=== PATIENT | male | born 1980 | race Caucasian/White ===

== ENCOUNTER → 2022-12-11 08:25 | Outpatient (CLI) | payer OTHER, SELFPAY ==
--- NOTE | ~2022-12-11 | CT_ITS ---
EXAMINATION: CT sinus wo con DATE: 12/11/2022 08:40 INDICATION: Deviated septum. Nasal obstruction. Nasal turbinate hypertrophy. TECHNIQUE: Computed tomography (CT) of the paranasal sinuses was performed without contrast. Iterativ e reconstruction technique was employed. Exam dose: 306.55 mGy-cm total exam DLP. COMPARISON: None FINDINGS: There is rightward bowing of the nasal septum. There is symmetric soft tissue prominence of the nasal turbinates. There is soft tissue thickening and partial occlusion of the right maxillary ostium and infundibulum. There is mild nonocclusive soft tissue thickening at the left maxillary ostium. There is soft tissue thickening in both frontoethmoid areas and mild patchy opacification of the ethm oid air cells and slight mucoperiosteal thickening in the lower maxillary sinuses. The mastoid air cells are normally developed and aerated. The middle and inner ear apparatus appear n ormal bilaterally. IMPRESSION: Rightward bowing of nasal septum Symmetric prominence of the nasal turbinates Partially occluding right maxillary and infundibular soft tissue thickening Nonocclusive mild soft tissue thickening of the left maxillary antrum Patchy soft tissue thickening at both frontoethmoid area is an ethmoid air cells and slight mucoperio steal thickening of the maxillary sinuses inferiorly Reviewed, dictated and finalized at [facility]. Reviewed, dictated and finalized at [facility]. IMPRESSION: Rightward bowing of nasal septum Symmetric prominence of the nasal turbinates Partially occluding right maxillary and infundibular soft tissue thickening Nonocclusive mild soft tissue thickening of the left maxillary antrum Patchy soft tissue thickening at both frontoethmoid area is an ethmoid air cell s and slight mucoperiosteal thickening of the maxillary sinuses inferiorly
== END ==
DX: J34.3 Hypertrophy of nasal turbinates (principal); R93.0 Abnormal findings on diagnostic imaging of skull and head, not elsewhere classified
CPT/HCPCS: 70486

== ENCOUNTER 2024-12-13 16:07 | Outpatient (CLI) | payer OTHER, SELFPAY ==
--- NOTE | ~2024-12-13 | XR_ITS ---
[id number] Indication: Radiculopathy, cervical region;NUMBNESS DOWN RT ARM x5 DAYS Comparison: None Findings: The vertebral heights are intact. No fracture or subluxation. Moderate loss of disc height C4-5 C5-6 and C6-7 Soft tissues unremarkable Impression: No acute abnormality. Reviewed, dictated and finalized at [facility]. Impression: No acute abnormality.
== END 2024-12-13 16:08 | disposition home or self-care (01) ==
LOC: MICIMG 16:09
PROVIDERS: PCP Physician Assistant; Visit Provider Physician Assistant
DX: M54.12 Radiculopathy, cervical region (principal)
CPT/HCPCS: 72040